=== PATIENT | male | born 1955 | race Two or more races ===

== ENCOUNTER 2018-10-15 08:01 | Emergency (ER) | payer BC ==
[~2018-10-15] VITALS: Ht 167.6 cm; Wt 65.8 kg
[2018-10-15 08:50] LABS: Basophils # (auto) 0 uL; Basophils % (auto) 0.9 % (0.0-2.0); Eosinophils # (auto) 0.1 uL; Eosinophils % (auto) 1.8 % (0.0-7.0); Hematocrit 46.9 % (41.0-53.0); Hemoglobin 15.7 g/dL (13.5-17.5); Lymphocytes # (auto) 1.1 uL; Mean Corpuscular Hemoglobin 33.5 pg (28.0-32.0); Mean Corpuscular Hgb Conc. 33.4 g/dL (32.0-36.0); Mean Corpuscular Volume 100.3 fL (80.0-100.0); Monocytes # (auto) 0.2 uL; Monocytes % (auto) 5.3 % (0.0-12.0); Neutrophils # (auto) 2.7 uL; Nucleated Red Blood Cells % 0.1 %; Platelet Count (auto) 188 10^3/uL (140-450); Red Blood Cells 4.68 10^6/uL (4.5-5.90); Red Cell Distribution Width 12.8 % (11.8-14.3); White Blood Cell 4.1 10^3/uL (4.4-10.8)
[2018-10-15 09:04] LABS: Potassium 3.9 mmol/L (3.5-5.1)
[2018-10-15 09:06] LABS: Albumin 3.8 g/dL (3.4-5.0)
[2018-10-15 09:09] LABS: BUN/Creatinine Ratio 16.5
[2018-10-15 09:12] LABS: Bilirubin, Total 0.5 mg/dL (0.2-1.0); Total Protein 7.5 g/dL (6.4-8.2)
[2018-10-15 09:13] VITALS: BP 124/71
[2018-10-15 09:21] LABS: Urine Bacteria NONE SEEN /hpf (None Seen); Urine Blood Negative /uL (Negative); Urine Mucus FEW (None Seen); Urine Specific Gravity 1.021 (1.001-1.035); Urine WBC 1 /hpf (0 - 3)
== END 2018-10-15 11:05 | disposition home or self-care (01) ==
LOC: ER 08:01
DX: K40.90 Unilateral inguinal hernia, without obstruction or gangrene, not specified as recurrent (principal)
CPT/HCPCS: 36415; 74176; 80053; 81001; 83690; 85025; 93005; 99284; J7030

== ENCOUNTER 2024-05-04 04:12 | Emergency (ER) | payer BC ==
[~2024-05-04] VITALS: Ht 167.6 cm; Wt 67.3 kg
[2024-05-04 04:25] VITALS: BP 124/84
[2024-05-04 04:45] LABS: Basophils # (auto) 0 10 ^3/uL (0-0.2); Eosinophils # (auto) 0.1 10 ^3/uL (0-0.8); Lymphocytes # (auto) 1.4 10 ^3/uL (0.4-5.4); Mean Corpuscular Volume 102.7 fL (80.0-100.0); Monocytes # (auto) 0.4 10 ^3/uL (0-1.3); White Blood Cell 5.5 10^3/uL (4.4-10.8)
[2024-05-04 04:46] LABS: Basophils % (auto) 0.5 % (0.0-2.0); Eosinophils % (auto) 1.2 % (0.0-7.0); Hematocrit 47.5 % (41.0-53.0); Hemoglobin 16.1 g/dL (13.5-17.5); Lymphocytes % (auto) 24.4 % (10.0-50.0); Mean Corpuscular Hemoglobin 34.9 pg (28.0-32.0); Monocytes % (auto) 6.9 % (0.0-12.0); Neutrophils # (auto) 3.7 10 ^3/uL (1.6-8.6); Platelet Count (auto) 203 10^3/uL (140-450); Red Blood Cells 4.63 10^6/uL (4.5-5.90)
[2024-05-04 04:55] LABS: Chloride 106 mmol/L (98-107); Potassium 4.3 mmol/L (3.5-5.1); Sodium 140 mmol/L (136-145)
[2024-05-04 04:56] LABS: Anion Gap 4 (5-15); Carbon Dioxide 30 mmol/L (20-31)
[2024-05-04 04:57] LABS: Calcium 9.8 mg/dL (8.7-10.4)
[2024-05-04 05:01] LABS: Glucose 109 mg/dL (74-106)
[2024-05-04 05:02] LABS: BUN/Creatinine Ratio 14.4 (10.0-20.0); Blood Urea Nitrogen 16 mg/dL (9-23); Lipase 36 U/L (12-53)
[2024-05-04] MEDS: MORPHINE SULFATE 4 MG/ML SYR/VIAL IV ONE (05:06)
[2024-05-04] MEDS: PANTOPRAZOLE 40 MG/10 ML VIAL INJ IV ONE (05:12)
[2024-05-04] MEDS: SODIUM CHLORIDE 0.9% 1,000 ML IV ONE (05:12)
[2024-05-04] MEDS: ONDANSETRON HCL 4 MG/2 ML VIAL IV ONE (05:12)
[2024-05-04 05:28] VITALS: PULSE 76; RESP 18; O2SAT 98
[2024-05-04 06:02] LABS: Urine Bacteria FEW /hpf (None Seen); Urine Blood Negative /uL (Negative); Urine Clarity Clear (Clear); Urine Color Yellow (Yellow); Urine Mucus FEW (None Seen); Urine Protein, UAD TRACE (Negative); Urine Specific Gravity 1.019 (1.001-1.035); Urine Urobilinogen Normal (Negative); Urine WBC 2 /hpf (0 - 3); Urine pH 6.5 (5.0-9.0)
[2024-05-04] MEDS: IOHEXOL 300 MG/ML 100ML BOTTLE IJ ONE (06:34)
[2024-05-04] MEDS ORDERED: POLY335015 PO (06:54)
== END 2024-05-04 07:03 | disposition home or self-care (01) ==
LOC: ER 04:12
DX: K59.00 Constipation, unspecified (principal); Z98.890 Other specified postprocedural states
CPT/HCPCS: 36415; 74177; 80048; 81001; 83690; 83880; 85025; 96361; 96374; 96375; 99285; J2405; J2470; J7030; Q9967

== ENCOUNTER 2024-12-15 18:38 | Emergency (ER) | payer BC ==
[~2024-12-15] VITALS: Ht 167.6 cm; Wt 69.1 kg
[~2024-12-15 18:38] MED LIST: POLY335015 PO
[2024-12-15 19:44] VITALS: BP 135/79; PULSE 82; RESP 16; TEMP 98.1; O2SAT 96
[2024-12-15] MEDS ORDERED: CYCL-837 PO (19:57)
[2024-12-15] MEDS ORDERED: ACE3T PO (19:57)
--- NOTE | 2024-12-15 19:58 | ED.PDOC ---
Musculoskeletal HPI Comments 69-year-old male presents to ER with complaints of left leg pain x3 weeks. Patient reports that he has been experiencing pain centralized to left buttock x3 weeks. States that he did follow up with a provider at onset of symptoms and was prescribed ibuprofen at that time that he's been taking without relief. He rates his current pain a 10/10 centralized to left buttock with radiation down posterior left leg. Patient presents to ER ambulatory on arrival, with steady gait, in no distress with vitals stable. Denies fever, numbness/tingling, trauma/falls/heavy lifting, nausea/vomiting, back pain, hip pain or any further symptoms/complaints Chief Complaint: Lower Extremity Time Seen by MD: 19:03 Primary Care Provider: [place] Reviewed Notes: Nurses Notes, Medications, Allergies Allergies: Coded Allergies: NO KNOWN ALLERGIES (Unverified , 10/15/18) Home Meds Active Scripts Cyclobenzaprine Hcl (Cyclobenzaprine Hcl) 5 Mg Tab, 1 TAB PO QHSP, #14 TAB 0 Refills Prov:FILIBERTO FRANCO 12/15/24 Acetaminophen W/ Codeine (Tylenol W/Cod #3) 1 Tab Tb, 1 TAB PO Q6HPRN, #10 TAB 0 Refills Prov:FILIBERTO FRANCO 12/15/24 Polyethylene Glycol 3350 (Miralax) 17 Gm Pow, 17 GM PO Q12HP PRN for 2 Days, #4 EA Prov:REBECCA STEVENSON MD 05/04/24 Information Source: Patient Mode of Arrival: Ambulatory Past Medical History PAST MEDICAL HISTORY: HTN Surgical History: Hernia Repair Family History Family History: Unknown Social History Smoker: Non-Smoker Alcohol: Denies ETOH Use Drugs: Denies Drug Use Lives In: Home Constitutional: denies: chills, diaphoresis, fatigue, fever, malaise, sweats, weakness, others EENTM: denies: blurred vision, double vision, ear bleeding, ear discharge, ear drainage, ear pain, ear ringing, eye pain, eye redness, hearing loss, mouth pain, mouth swelling, nasal discharge, nose bleeding, nose congestion, nose pain, photophobia, tearing, throat pain, throat swelling, voice changes, others Respiratory: denies: cough, hemoptysis, orthopnea, SOB at rest, shortness of breath, SOB with excertion, stridor, wheezing, others Cardiovascular: denies: chest pain, dizzy spells, diaphoresis, Dyspnea on exertion, edema, irregular heart beat, left arm pain, lightheadedness, palpitations, PND, syncope, others Gastrointestinal: denies: abdomen distended, abdominal pain, blood streaked bowels, constipated, diarrhea, dysphagia, difficulty swallowing, hematemesis, melena, nausea, poor appetite, poor fluid intake, rectal bleeding, rectal pain, vomiting, others Genitourinary: denies: burning, dysuria, flank pain, frequency, hematuria, incontinence, penile discharge, penile sore, pain, testicle pain, testicle swelling, urgency, others Neurological: denies: dizziness, fainting, headache, left sided numbness, left sided weakness, numbness, paresthesia, pre-existing deficit, right sided numbness, right sided weakness, seizure, speech problems, tingling, tremors, weakness, others Musculoskeletal: reports: others (As stated in HPI) Integumetry: denies: bruises, change in color, change in hair/nails, dryness, laceration, lesions, lumps, rash, wounds, others Allergic/Immunocompromised: denies: Difficulty Healing, Frequent Infections, Hives, Itching, others Hematologic/Lymphatic: denies: anemia, blood clots, easy bleeding, easy bruising, swollen glands, others Endocrine: denies: excessive hunger, excessive sweating, excessive thirst, excessive urination, flushing, intolerance to cold, intolerance to heat, unexplained weight gain, unexplained weight loss, others Psychiatric: denies: anxiety, bipolar disorder, depression, hopeless, panic disorder, schizophrenia, sleepless, suicidal, others Physical Exam General Appearance: No Apparent Distress HEENT: PERRL/EOMI Neck: Full Range of Motion, Non-Tender, Normal Respiratory: Chest Non-Tender, Lungs Clear, No Accessory Muscle Use, No Respiratory Distress, Normal Breath Sounds Cardiovascular: No Murmur, No Gallop, Regular Rate/Rhythm Breast Exam: Deferred Gastrointestinal: NOT DONE Genitalia: Deferred Pelvic: Deferred Rectal: Deferred Extremities: No calf tenderness, Normal capillary refill, Normal range of motion Musculoskeletal : Extremity Location: Other (TTP centralized to left buttock noted. No skin changes noted. No TTP to lumbar spine or left hip noted. Steady gait appreciated) Neurologic: Alert, plate hanger II-XII nml as Tested, No Motor Deficits, Normal Affect, Normal Mood, No Sensory Deficits Cerebellar Function: Normal Reflexes: Normal Skin: Dry, Normal Color, Warm Peripheral Pulses: 2+ femoral (R), 2+ femoral (L), 2+ dorsalis pedis (R), 2+ dorsalis pedis (L), 2+ Radial (R), 2+ Radial (L), 2+ Brachial (R), 2+ Brachial (L) Lymphatic: No Adenopathy Was a procedure done? Was a procedure done?: No Sedation Sedation?: No Differential Diagnosis EXT Differential Diagnosis: Deep Vein Thrombosis, Fracture, Dislocation, Neurovascular injury X-Ray, Labs, Meds, VS Vital Signs Date Time Temp Pulse Resp B/P (MAP) Pulse Ox O2 Delivery O2 Flow Rate FiO2 12/15/24 19:44 98.1 82 16 135/79 (97) 96 98.1 12/15/24 19:44 Room Air* 0 21 12/15/24 18:50 98.1 82 16 135/79 (97) 96 98.1 Toradol 60 mg IM ordered Advised to follow up with PCP in 1-2 days Patient verbalized understanding and agreeable with current plan of care Advised to return to ER immediately if symptoms worse Time of 1ST Reevaluation: 19:24 Reevaluation 1ST: N/A Patient Education/Counseling: Diagnosis, Treatment, Prognosis, Need For Follow Up Family Education/Counseling: No Family Present Departure 1 Departure Time of Disposition: 19:52 Impression: Primary Impression: Sciatica, left side Disposition: 01 HOME / SELF CARE / HOMELESS Condition: Stable e-Prescriptions Cyclobenzaprine Hcl (Cyclobenzaprine Hcl) 5 Mg Tab 1 TAB PO QHSP, #14 TAB 0 Refills Prov: FILIBERTO FRANCO 12/15/24 Acetaminophen W/ Codeine (Tylenol W/Cod #3) 1 Tab Tb 1 TAB PO Q6HPRN, #10 TAB 0 Refills Prov: FILIBERTO FRANCO 12/15/24 Discharged With: Friend Critical Care Note Critical Care Time?: No Stability Stability form required: No Heart Score Heart Score: Heart Score Response (Comments) Value History N/A 0 EKG N/A 0 Age N/A 0 Risk Factors N/A 0 Troponin N/A 0 Total 0 FILIBERTO FRANCO Dec 15, 2024 19:58
[2024-12-15] MEDS: KETOROLAC TROMETH 60MG/2ML VIAL IM ONE (20:01)
== END 2024-12-15 20:05 | disposition home or self-care (01) ==
LOC: ER 18:38
DX: M54.32 Sciatica, left side (principal); I10 Essential (primary) hypertension; Z98.890 Other specified postprocedural states
CPT/HCPCS: 96372; 99283; J1885